=== PATIENT | female | born 1955 | race Two or more races ===

== ENCOUNTER 2021-04-11 13:48 | Inpatient (IN) | payer MEDICARE, OTHER ==
[~2021-04-11] VITALS: Ht 170.2 cm; Wt 81.6 kg
--- NOTE | 2021-04-11 15:00 | NUR ---
ROOM 220-B
--- NOTE | 2021-04-11 15:02 | NUR ---
URINE COLLECTED AND SENT TO THE LAB
[2021-04-11] MEDS ORDERED: NA P133E RC (15:15)
[2021-04-11] MEDS ORDERED: MAGN400O6 PO (15:15)
[2021-04-11] MEDS ORDERED: ACET325T53 PO (15:15)
[2021-04-11 16:07] LABS: BILIRUBIN,URINE NEGATIVE (NEGATIVE); COLOR,URINE YELLOW (YELLOW); LEUKOCYTE ESTERASE ,URINE MODERATE (NEGATIVE); NITRITE, URINE NEGATIVE (NEGATIVE); PROTEIN,URINE NEGATIVE (NEGATIVE); UGLUCOSE NEGATIVE (NEGATIVE); UROBILINOGEN,URINE 0.2 EU/dL (0.2)
[2021-04-11 16:14] LABS: BACTERIA,URINE 2+ /HPF (None Seen); RBC,URINE 0-2 /HPF (0-2); WBC,URINE 21-50 /HPF (0-3)
[2021-04-11 17:06] LABS: BASOPHILS % (AUTO) 0.4 % (0.0-2.0); EOSINOPHILS % (AUTO) 2.2 % (0.0-6.0); HEMATOCRIT 39 % (33-45); HEMOGLOBIN 12.8 g/dL (11.5-14.8); LYMPHOCYTES # (AUTO) 2.2 K/uL (0.8-4.8); LYMPHOCYTES % (AUTO) 34.6 % (20.0-44.0); MEAN CORPUSCULAR HGB CONC 33 g/dl (31.0-36.0); MEAN CORPUSCULAR VOLUME 93 fL (82-100); MONOCYTES # (AUTO) 0.8 K/uL (0.1-1.30); MONOCYTES % (AUTO) 12.9 % (2.0-12.0); NEUTROPHILS # (AUTO) 3.2 K/uL (1.8-8.9); NEUTROPHILS % (AUTO) 49.9 % (43.0-81.0); PLATELET COUNT (AUTO) 224 K/uL (150-450); RED BLOOD CELL COUNT(AUTO) 4.16 MIL/uL (4.0-5.2); WHITE BLOOD COUNT (AUTO) 6.4 K/uL (4.3-11.0)
[2021-04-11 17:14] LABS: CALCIUM, SERUM 9.3 mg/dL (8.5-10.1); CARBON DIOXIDE 27 mmol/L (21-32); CHLORIDE 106 mmol/L (98-107); CREATININE 0.8 mg/dL (0.6-1.3); GLUCOSE 99 mg/dL (74-106); POTASSIUM 4.1 mmol/L (3.5-5.1); SODIUM SERUM 141 mmol/L (136-145); UREA NITROGEN, BLOOD 16 mg/dL (7-18)
[2021-04-11 17:20] LABS: ALANINE AMINOTRANSFERASE 24 U/L (12-78); ALBUMIN 3.8 g/dL (3.4-5.0); ALKALINE PHOSPHATASE 120 U/L (46-116); ASPARTATE AMINOTRANSFERASE 22 U/L (15-37); BILIRUBIN,DIRECT 0.1 mg/dL (0.0-0.2); BILIRUBIN,TOTAL 0.4 mg/dL (0.2-1.0); TOTAL PROTEIN, SERUM 7.2 g/dL (6.4-8.2)
[2021-04-11 17:26] LABS: ACETAMINOPHEN 0 ug/ml (10-30); ALCOHOL, BLOOD < 3 mg/dL (0-0)
--- NOTE | 2021-04-11 17:49 | NUR ---
ART (PSYCH CLINICIAN) AT THE BEDSIDE
[2021-04-11 19:57] VITALS: BP 132/74
[2021-04-11] MEDS ORDERED: ACETAMINOPHEN 325 MG TABLET PO PRN (20:30)
[2021-04-11] MEDS ORDERED: MAGNESIUM HYDROXIDE 30 ML UDC PO PRN (20:30)
[2021-04-11] MEDS ORDERED: MAG HYDROX/AL HYDROX/SIMETH 30 ML UDC PO PRN (20:30)
[2021-04-11 20:44] VITALS: BP 143/80
[2021-04-11] MEDS ORDERED: BLOOD SUGAR DIAGNOSTIC 1 EACH STRIP IN ONE (21:30)
--- NOTE | 2021-04-11 23:00 | NUR ---
ADMISSION NOTES: ADMITTED THIS 65Y/O FEMALE PATIENT ADMIT FROM [facility] ER / INTAILLY FROM [facility] , ADMITTED TO GPS ON 5150 HOLD, PER HOLD GRAVELY DISABLED AND DUE TO INCREASED AGITATION AND VERBAL AND PHYSICAL AGGRESSION TOWARDS OTHER INCREASED CONFUSION , UPON FACE TO FACE ASSESSMENT PATIENT IS A&O X 1 ANXIOUS ,EASILY AGITATED , PARNOID DISHELVED , DISORGNIZED, UNCOOPERTIVE, RESTLESS, HYPERVERBAL, LOUD WORLD SALAD ,POOR HYGINE ,DELUSIONAL,CONFUSED, PT. NEEDS FREQUENLTLY REDIRECTIONS, REFUSED TO TAKE SHOWER AT THIS TIME, PT. IS POOR HISTORIAN, POOR INSIGHT ,POOR JUDGEMENT, PT. DENIES SI HI AT THIS TIME , BOTH MD AWARE AND NOTIFIED OF THE ADMISSION, BELONGINGS CONTRABAND WERE DONE , PT. REFUSED TO SIGNS OF ADMISSION PAPER DUE TO MENTAL CONDITION, REFUSED INITIALLY ACCU CHECK ENCOURAGED X3 STRONGLY REFUSED , PER PT. STATES I'M NOT DIABETIC ,PT. REFUSED SKIN ASSESSMENT AND PICTURES TAKEN, PT. RIGHTS DISCUSS BY PRIMARY NURSE , PROVIDE THE PT. WITH HANDBOOK, AND MEDICATIONS GUIDE, ENVIRONMENTAL SAFETY CHECK DONE, ENCOURAGED PT. VERBALIZED ANY FEELING CONCERN TO STAFF, ORIENT TO UNIT POLICY, NO ACUTE DISTRESS NOTED,VITAL SIGNS WNL ,DENIES ANY PAIN AT THIS TIME,WILL CONTINUE TO MONITOR FOR Q15 SAFETY AND BEHAVIOR.
--- NOTE | 2021-04-11 23:15 | NUR ---
RN NOTES: PT. REFUSED SKIN ASSESSMENT AND PICTURES TAKEN , ENCOURAGED X 3 PT. STRONGLY REFUSED AND PT. UNCOOPERTIVE ,AGGRESSIVE , PER PT. MY SKIN IS FINE ,
[2021-04-12 08:00] VITALS: BP 119/80
--- NOTE | 2021-04-12 09:13 | NUR ---
FÁTIMA Initial Discharge Plan: Patient is from [facility]. FÁTIMA asked Rajwinder from [place] and she stated she will let this SW know if pt is welcomed back. FÁTIMA will coordinate with the MD and treatment team.
--- NOTE | 2021-04-12 09:20 | NUR ---
Treatment Plan: Pt suspicious of this SW and refused to sign treatment plan.
--- NOTE | 2021-04-12 09:57 | NUR ---
SNF Contact: [facility] will accept pt back upon discharge.
--- NOTE | 2021-04-12 09:57 | NUR ---
Conservator: SW contacted pt's conservator Leonides Chou ([phone]) and left a detailed voicemail of pt's admission. SW requested conservator documents and detain and treat. However, FÁTIMA contacted ([phone]) and spoke with officer of the mathew Saldaña who will fax detain and treat and conservator documents.
[2021-04-12] MEDS ORDERED: ACETAMINOPHEN 325 MG TABLET PO PRN (11:30)
[2021-04-12] MEDS ORDERED: NA PHOS,M-B/NA PHOS,DI-BA 1 EA ENEMA RC PRN (11:30)
[2021-04-12] MEDS ORDERED: MAGNESIUM HYDROXIDE 30 ML UDC PO PRN (11:30)
[2021-04-12] MEDS: CEPHALEXIN MONOHYDRATE 500 MG CAPSULE PO SCH ×2 (11:42→20:35)
--- NOTE | 2021-04-12 12:44 | NUR ---
Conservator: FÁTIMA contacted ([phone]) and spoke with officer of the day Piper from [facility] [employer] who faxed the conservator paper works. FÁTIMA placed in pt's chart. FÁTIMA faxed for Piper to sign Detain and treat at ([phone]).
--- NOTE | 2021-04-12 13:03 | NUR ---
Detain and Treat/Conservator: SW faxed for Piepr to sign Detain and treat at ([phone]) and she faxed it back to this SW. SW placed it in pt's chart and notified nursing.
[2021-04-12 15:47] VITALS: BP 133/95
[2021-04-12] MEDS ORDERED: HALOPERIDOL LACTATE INJ 5 MG/ML VIAL IM PRN (18:00)
--- NOTE | 2021-04-12 19:15 | NUR ---
STOCK ANALYST NOTES: RECEIVED PT IN ROOM SITTING IN BED. A/O X1. NO ACUTE DISTRESS NOTED. ON ROOM AIR. BREATHING EVEN AND UNLABORED WITH EQUAL RISE AND FALL OF THE CHEST. NO COMPLAINTS OF PAIN AT THIS TIME. RESPONDS TO INTERNAL STIMULI. PT IS ANXIOUS AND EASILY AGITATED. REQUIRES REDIRECTION. PT DENIES SUICIDE IDEATIONS AND HOMICIDAL IDEATIONS AT THIS TIME. PT HAS NO NEEDS A THIS TIME. SAFETY MEASURES IN PLACE. WILL CONTINUE TO MONITOR Q15 MINS WITH THE HELP OF STAFF TO MAINTAIN SAFETY.
[2021-04-12] MEDS: HALOPERIDOL 5 MG TABLET PO SCH (20:35)
[2021-04-12] MEDS: DIVALPROEX SODIUM 125 MG CAP.SPRINK PO SCH (20:36)
[2021-04-12 20:56] VITALS: BP 127/52
[2021-04-13 08:00] VITALS: BP 129/75
[2021-04-13] MEDS: HALOPERIDOL 5 MG TABLET PO SCH ×2 (08:26→20:57)
[2021-04-13] MEDS: DIVALPROEX SODIUM 125 MG CAP.SPRINK PO SCH ×2 (08:26→20:57)
[2021-04-13] MEDS: CEPHALEXIN MONOHYDRATE 500 MG CAPSULE PO SCH ×2 (08:29→21:07)
--- NOTE | 2021-04-13 14:58 | NUR ---
RN-NOTES PATIENT REFUSED LAB DRAW TODAY DESPITE EXPLANATIONS RISK AND BENEFITS. X3 ATTEMPT.
[2021-04-13 16:00] VITALS: BP 110/71
[2021-04-13 19:55] VITALS: BP 128/75
[2021-04-13 19:57] VITALS: BP 128/75
--- NOTE | 2021-04-13 22:21 | NUR ---
RN NOTE PATIENT SEEN BY DR. MILLAN ROOFER METAL PSYCHIATRIST, PATIENT HAS BEEN REFUSING AM LABS AND LAB ORDER WAS CANCELLED. MD MADE AWARE WITH NEW ORDER TO RE ORDER LABS FOR TOMORROW MORNING (04/14/21). ORDER NOTED AND CARRIED OUT.
--- NOTE | 2021-04-14 06:38 | NUR ---
RN NOTE PATIENT REFUSED BLOOD DRAW IN AM X 3, UNCOOPERATIVE, EASILY AGITATED AND ANXIOUS.
[2021-04-14 08:00] VITALS: BP 127/77
[2021-04-14] MEDS: CEPHALEXIN MONOHYDRATE 500 MG CAPSULE PO SCH ×2 (08:47→21:15)
[2021-04-14] MEDS: DIVALPROEX SODIUM 125 MG CAP.SPRINK PO SCH ×2 (08:47→21:11)
[2021-04-14] MEDS: HALOPERIDOL 5 MG TABLET PO SCH ×2 (08:47→21:11)
[2021-04-14 16:00] VITALS: BP 146/77
--- NOTE | 2021-04-14 20:00 | NUR ---
GPS-RN NOTES: PATIENT REFUSED WEEKLY SKIN ASSESSMENT.
[2021-04-14 20:02] VITALS: BP 127/52
[2021-04-14] MEDS: TEMAZEPAM 7.5 MG CAPSULE PO PRN (22:58)
--- NOTE | 2021-04-14 22:58 | NUR ---
GPS-RN NOTES: INSOMNIA PATIENT IS UNABLE TO SLEEP. PRN RESTORIL 7.5MG PO GIVEN. WILL CONTINUE TO MONITOR.
[2021-04-15] MEDS: LORAZEPAM 0.5 MG TABLET PO PRN (00:57)
--- NOTE | 2021-04-15 00:57 | NUR ---
GPS-RN NOTES: ANXIETY PATIENT IS ANXIOUS AND RESTLESS. PRN ATIVAN 0.5MG PO GIVEN. WILL CONTINUE TO MONITOR PATIENT'S SAFETY.
[2021-04-15 06:52] LABS: BASOPHILS % (AUTO) 0.4 % (0.0-2.0); CALCIUM, SERUM 9.6 mg/dL (8.5-10.1); EOSINOPHILS % (AUTO) 3.6 % (0.0-6.0); HEMATOCRIT 43 % (33-45); HEMOGLOBIN 14.1 g/dL (11.5-14.8); LYMPHOCYTES # (AUTO) 2.1 K/uL (0.8-4.8); LYMPHOCYTES % (AUTO) 48.3 % (20.0-44.0); MEAN CORPUSCULAR HGB CONC 33 g/dl (31.0-36.0); MEAN CORPUSCULAR VOLUME 94 fL (82-100); MONOCYTES # (AUTO) 0.5 K/uL (0.1-1.30); NEUTROPHILS # (AUTO) 1.6 K/uL (1.8-8.9); NEUTROPHILS % (AUTO) 35.7 % (43.0-81.0); PLATELET COUNT (AUTO) 237 K/uL (150-450); POTASSIUM 4.1 mmol/L (3.5-5.1); RED BLOOD CELL COUNT(AUTO) 4.55 MIL/uL (4.0-5.2); WHITE BLOOD COUNT (AUTO) 4.4 K/uL (4.3-11.0)
[2021-04-15 07:25] LABS: CREATININE 0.7 mg/dL (0.6-1.3)
[2021-04-15 08:00] VITALS: BP 129/91
[2021-04-15] MEDS: DIVALPROEX SODIUM 125 MG CAP.SPRINK PO SCH ×2 (08:35→21:24)
[2021-04-15] MEDS: HALOPERIDOL 5 MG TABLET PO SCH ×2 (08:36→21:24)
[2021-04-15] MEDS: CEPHALEXIN MONOHYDRATE 500 MG CAPSULE PO SCH (08:36)
--- NOTE | 2021-04-15 08:36 | NUR ---
RN NOTE- KEFLEX 500 MG ADMINISTERED. NOT SCANNABLE
--- NOTE | 2021-04-15 09:00 | NUR ---
RN NOTE- RECEIVED PATIENT SITTING IN THE CHAIR NEXT TO HER BED GUARDED,TALKING AND MUMBLING TO SELF. AMBULATORY STEADY GAIT.COMPLIANT WITH MEDICATIONS. ALL NEEDS ATTENDED AND ANTICIPATED. WILL CONT. MONITORING FOR SAFETY AND BEHAVIOR.
--- NOTE | 2021-04-15 14:32 | NUR ---
Individual Therapy: SW met with patient to conduct therapy. However, pt appeared guarded and suspicious. Pt did not want to conduct therapy at this time.
[2021-04-15 16:00] VITALS: BP 144/88
[2021-04-15 20:10] VITALS: BP 112/74
[2021-04-15] MEDS: TEMAZEPAM 7.5 MG CAPSULE PO PRN (22:11)
--- NOTE | 2021-04-15 22:11 | NUR ---
GPS-RN NOTES: INSOMNIA PATIENT IS UNABLE TO SLEEP. PRN RESTORIL 7.5MG PO GIVEN. WILL CONTINUE TO MONITOR.
[2021-04-16 08:00] VITALS: BP 131/71
[2021-04-16] MEDS: HALOPERIDOL 5 MG TABLET PO SCH ×2 (09:47→21:25)
[2021-04-16] MEDS: DIVALPROEX SODIUM 125 MG CAP.SPRINK PO SCH ×2 (09:47→21:25)
[2021-04-16] MEDS ORDERED: HALOPERIDOL DECANOATE IM 100 MG/ML AMPUL IM ONE (10:00)
[2021-04-16 16:00] VITALS: BP 127/74
[2021-04-16] MEDS: TEMAZEPAM 7.5 MG CAPSULE PO PRN (23:16)
--- NOTE | 2021-04-16 23:16 | NUR ---
GPS-RN NOTES: INSOMNIA PATIENT IS UNABLE TO SLEEP. PRN RESTORIL 7.5MG PO GIVEN. WILL CONTINUE TO MONITOR.
[2021-04-17 08:00] VITALS: BP 105/79
[2021-04-17] MEDS: HALOPERIDOL 5 MG TABLET PO SCH ×2 (08:48→20:52)
[2021-04-17] MEDS: DIVALPROEX SODIUM 125 MG CAP.SPRINK PO SCH ×2 (08:48→20:52)
[2021-04-17 16:00] VITALS: BP 110/54
[2021-04-17 20:00] VITALS: BP 130/97
[2021-04-18 08:00] VITALS: BP 149/76
[2021-04-18] MEDS: DIVALPROEX SODIUM 125 MG CAP.SPRINK PO SCH ×3 (08:22→16:23)
[2021-04-18] MEDS: HALOPERIDOL 5 MG TABLET PO SCH ×2 (08:22→21:49)
[2021-04-18 16:00] VITALS: BP 132/76
--- NOTE | 2021-04-18 19:30 | NUR ---
GPS RN NOTE, RECEIVED PATIENT AWAKE AND IN BED, NO S/S OR COMPLAINTS OF PAIN AT THIS TIME. PATIENT IS DISPLAYING NO S/S OF APPARENT DISTRESS AT THIS TIME. PATIENT BREATHING IS UNLABORED WITH EQUAL RISE AND FALL OF THE CHEST. PATIENT IS ALERT AND ORIENTED X 1-2 ON ROOM AIR WITH A SPO2 96%. PATIENT IS COMPLIANT WITH MEDICATIONS, RESPONDING, ACTING BIZARRE, ANXIOUS AT TIMES, NEEDY, COOPERATIVE AND NEEDS REDIRECTION. PATIENT DENIES SUICIDAL AND HOMICIDAL IDEATIONS AT THIS TIME. PATIENT ASSISTED WITH TURNING AND REPOSITIONING Q2HR AND PRN FOR COMFORT AND CIRCULATION. PATIENT HAS NO NEEDS AT THIS TIME. PATIENT EDUCATED ON THE USE OF THE CALL GEIGER. PATIENT BED SIDE RAILS UP X 2 FOR SAFETY. PATIENT BED IS LOCKED, LOW, WITH BED ALARM ON. WILL CONTINUE TO MONITOR THIS PATIENT Q15 MINUTES WITH THE HELP OF STAFF TO MAINTAIN SAFETY.
[2021-04-19 08:00] VITALS: BP 127/63
[2021-04-19] MEDS: HALOPERIDOL 5 MG TABLET PO SCH ×2 (08:12→21:25)
[2021-04-19] MEDS: DIVALPROEX SODIUM 125 MG CAP.SPRINK PO SCH ×3 (08:12→16:21)
[2021-04-19 16:00] VITALS: BP 125/68
--- NOTE | 2021-04-19 19:30 | NUR ---
GPS RN NOTE, RECEIVED PATIENT AWAKE AND IN BED, NO S/S OR COMPLAINTS OF PAIN AT THIS TIME. PATIENT IS DISPLAYING NO S/S OF APPARENT DISTRESS AT THIS TIME. PATIENT BREATHING IS UNLABORED WITH EQUAL RISE AND FALL OF THE CHEST. PATIENT IS ALERT AND ORIENTED X 1-2 ON ROOM AIR WITH A SPO2 99%. PATIENT IS COMPLIANT WITH MEDICATIONS, RESPONDING, ACTING BIZARRE, ANXIOUS AT TIMES, NEEDY, HOARDING TRASH, COOPERATIVE, AND NEEDS REDIRECTION. PATIENT DENIES SUICIDAL AND HOMICIDAL IDEATIONS AT THIS TIME. PATIENT ASSISTED WITH TURNING AND REPOSITIONING Q2HR AND PRN FOR COMFORT AND CIRCULATION. PATIENT HAS NO NEEDS AT THIS TIME. PATIENT EDUCATED ON THE USE OF THE CALL GEIGER. PATIENT BED SIDE RAILS UP X 2 FOR SAFETY. PATIENT BED IS LOCKED, LOW, WITH BED ALARM ON. WILL CONTINUE TO MONITOR THIS PATIENT Q15 MINUTES WITH THE HELP OF STAFF TO MAINTAIN SAFETY.
[2021-04-19 19:51] VITALS: BP 110/69
[2021-04-20 08:00] VITALS: BP 115/70
[2021-04-20] MEDS: DIVALPROEX SODIUM 125 MG CAP.SPRINK PO SCH ×3 (08:19→16:00)
[2021-04-20] MEDS: HALOPERIDOL 5 MG TABLET PO SCH ×2 (08:19→21:54)
[2021-04-20 16:00] VITALS: BP 112/68
[2021-04-20 20:13] VITALS: BP 114/52
[2021-04-21 08:00] VITALS: BP 128/83
[2021-04-21] MEDS: DIVALPROEX SODIUM 125 MG CAP.SPRINK PO SCH ×3 (08:36→17:10)
[2021-04-21] MEDS: HALOPERIDOL 5 MG TABLET PO SCH ×2 (08:36→21:11)
[2021-04-21 16:00] VITALS: BP 139/81
--- NOTE | 2021-04-21 21:00 | NUR ---
GPS-RN NOTES: PATIENT REFUSED WEEKLY SKIN ASSESSMENT.
[2021-04-21 21:09] VITALS: BP 104/52
[2021-04-21] MEDS: LORAZEPAM 0.5 MG TABLET PO PRN (21:52)
--- NOTE | 2021-04-21 21:52 | NUR ---
GPS-RN NOTES: ANXIETY PATIENT IS ANXIOUS AND RESTLESS. PRN ATIVAN 0.5MG PO GIVEN. WILL CONTINUE TO MONITOR PATIENT'S SAFETY.
[2021-04-21] MEDS: TEMAZEPAM 7.5 MG CAPSULE PO PRN (23:50)
--- NOTE | 2021-04-21 23:50 | NUR ---
GPS-RN NOTES: INSOMNIA PATIENT IS UNABLE TO SLEEP. PRN RESTORIL 7.5MG PO GIVEN. WILL CONTINUE TO MONITOR.
[2021-04-22 08:00] VITALS: BP 133/63
[2021-04-22] MEDS: HALOPERIDOL 5 MG TABLET PO SCH ×2 (09:37→20:46)
[2021-04-22] MEDS: DIVALPROEX SODIUM 125 MG CAP.SPRINK PO SCH ×3 (09:38→17:00)
[2021-04-22] MEDS ORDERED: HALOPERIDOL DECANOATE IM 100 MG/ML AMPUL IM ONE (11:00)
[2021-04-22 16:00] VITALS: BP 155/80
[2021-04-22 19:37] VITALS: BP 128/64
[2021-04-22] MEDS: TEMAZEPAM 7.5 MG CAPSULE PO PRN (20:46)
[2021-04-23 08:00] VITALS: BP 117/59
[2021-04-23] MEDS: HALOPERIDOL 5 MG TABLET PO SCH ×2 (08:45→21:03)
[2021-04-23] MEDS: DIVALPROEX SODIUM 125 MG CAP.SPRINK PO SCH ×3 (08:46→17:49)
[2021-04-23 15:39] VITALS: BP 129/95
[2021-04-23 20:00] VITALS: BP 126/63
[2021-04-23] MEDS: TEMAZEPAM 7.5 MG CAPSULE PO PRN (22:58)
--- NOTE | 2021-04-23 22:58 | NUR ---
GPS-RN NOTES: INSOMNIA PATIENT IS UNABLE TO SLEEP. PRN RESTORIL 7.5MG PO GIVEN ORDERED. WILL CONTINUE TO MONITOR.
[2021-04-24 08:00] VITALS: BP 150/93
[2021-04-24] MEDS: DIVALPROEX SODIUM 125 MG CAP.SPRINK PO SCH ×3 (08:21→16:30)
[2021-04-24] MEDS: HALOPERIDOL 5 MG TABLET PO SCH (08:21)
[2021-04-24 16:00] VITALS: BP 136/50
[2021-04-24] MEDS ORDERED: HALOPERIDOL 5 MG TABLET PO SCH (17:00)
[2021-04-24 20:00] VITALS: BP 156/76
[2021-04-25] MEDS ORDERED: HALOPERIDOL 5 MG TABLET PO SCH (07:30)
[2021-04-25 08:00] VITALS: BP 127/74
[2021-04-25] MEDS: QUETIAPINE FUMARATE 25 MG TABLET PO SCH ×2 (09:36→16:31)
[2021-04-25] MEDS: DIVALPROEX SODIUM 125 MG CAP.SPRINK PO SCH ×3 (09:36→16:31)
[2021-04-25 16:00] VITALS: BP 136/76
[2021-04-26 08:00] VITALS: BP 146/62
[2021-04-26] MEDS: DIVALPROEX SODIUM 125 MG CAP.SPRINK PO SCH ×3 (08:21→16:42)
[2021-04-26] MEDS: QUETIAPINE FUMARATE 25 MG TABLET PO SCH (08:21)
[2021-04-26 15:58] VITALS: BP 134/78
[2021-04-26 20:18] VITALS: BP 150/65
[2021-04-26] MEDS: QUETIAPINE FUMARATE 100 MG TABLET PO SCH (21:30)
[2021-04-27 08:00] VITALS: BP 126/76
[2021-04-27] MEDS: QUETIAPINE FUMARATE 25 MG TABLET PO SCH (09:36)
[2021-04-27] MEDS: DIVALPROEX SODIUM 125 MG CAP.SPRINK PO SCH ×3 (09:36→17:14)
[2021-04-27 16:00] VITALS: BP 126/56
--- NOTE | 2021-04-27 19:30 | NUR ---
GPS RN NOTE, RECEIVED PATIENT AWAKE AND IN BED, NO S/S OR COMPLAINTS OF PAIN AT THIS TIME. PATIENT IS DISPLAYING NO S/S OF APPARENT DISTRESS AT THIS TIME. PATIENT BREATHING IS UNLABORED WITH EQUAL RISE AND FALL OF THE CHEST. PATIENT IS ALERT AND ORIENTED X 1-2 ON ROOM AIR WITH A SPO2 98%. PATIENT IS COMPLIANT WITH MEDICATIONS, RESPONDING, ACTING BIZARRE, ANXIOUS AT TIMES, NEEDY, COOPERATIVE AND NEEDS REDIRECTION. PATIENT DENIES SUICIDAL AND HOMICIDAL IDEATIONS AT THIS TIME. PATIENT ASSISTED WITH TURNING AND REPOSITIONING Q2HR AND PRN FOR COMFORT AND CIRCULATION. PATIENT HAS NO NEEDS AT THIS TIME. PATIENT EDUCATED ON THE USE OF THE CALL GEIGER. PATIENT BED SIDE RAILS UP X 2 FOR SAFETY. PATIENT BED IS LOCKED, LOW, WITH BED ALARM ON. WILL CONTINUE TO MONITOR THIS PATIENT Q15 MINUTES WITH THE HELP OF STAFF TO MAINTAIN SAFETY.
[2021-04-27 20:12] VITALS: BP 133/47
[2021-04-27 20:14] VITALS: BP 133/47
[2021-04-27] MEDS: QUETIAPINE FUMARATE 100 MG TABLET PO SCH (21:38)
[2021-04-28 08:00] VITALS: BP 137/85
[2021-04-28] MEDS: LORAZEPAM 0.5 MG TABLET PO PRN (09:17)
[2021-04-28] MEDS: QUETIAPINE FUMARATE 25 MG TABLET PO SCH (09:17)
[2021-04-28] MEDS: DIVALPROEX SODIUM 125 MG CAP.SPRINK PO SCH ×3 (09:18→16:16)
--- NOTE | 2021-04-28 09:21 | NUR ---
RN-CO: ATIVAN 0.5 MG PO GIVEN FOR RESTLESSNESS AND DISRUPTION TO THE UNIT.
[2021-04-28 16:11] VITALS: BP 140/82
--- NOTE | 2021-04-28 20:00 | NUR ---
GPS-RN NOTE: PATIENT REFUSED WEEKLY SKIN ASSESSMENT. EXPLAINED RISKS AND BENEFITS. PATIENT CONTINUED TO REFUSE. WILL ENDORSE TO DAY SHIFT NURSE FOR CONTINUITY OF CARE.
[2021-04-28 20:01] VITALS: BP 115/70
[2021-04-28] MEDS: QUETIAPINE FUMARATE 100 MG TABLET PO SCH (21:01)
[2021-04-29 08:00] VITALS: BP 151/88
[2021-04-29] MEDS: QUETIAPINE FUMARATE 25 MG TABLET PO SCH (09:04)
[2021-04-29] MEDS: DIVALPROEX SODIUM 125 MG CAP.SPRINK PO SCH ×3 (09:04→17:31)
--- NOTE | 2021-04-29 09:47 | NUR ---
Conservator: SW contacted pt's conservator Leonides Chou ([phone]) and left a detailed voicemail of dc back to [facility] 04/30.
[2021-04-29 16:23] VITALS: BP 126/71
[2021-04-29 20:11] VITALS: BP 140/76
[2021-04-29] MEDS: QUETIAPINE FUMARATE 100 MG TABLET PO SCH (21:18)
[2021-04-30 08:00] VITALS: BP 119/57
--- NOTE | 2021-04-30 08:11 | NUR ---
SW Discharge Note: Patient will be discharged to a locked long term facility to [facility] [address] [place] [address]; ([phone]). Please arrange ambulance transportation. Electrical Discharge Machine Operator spoke with Yessy, Ict Analyst at [facility]; ([phone]), who stated patient will be accepted at facility today. Patient is alert and oriented x1, and is not able to plan for self-care at this time, but is willing to accept care provided for her at the facility. Patient denies any suicidal or homicidal ideations. Patient is aware and agreeable with discharge plans. Patients conservator José Antonio Coyle ([phone]) is aware and agreeable. Patient will continue to follow-up with her (Psychiatrist) Dr. Slater located at [address] [place] [id number]; ([phone]) and (Senior Cisco Network Engineer) Dr. Marquis [address], [place] [address]; ([phone]). Patient presents with euthymic mood and congruent affect.
[2021-04-30] MEDS: DIVALPROEX SODIUM 125 MG CAP.SPRINK PO SCH ×2 (09:54→13:22)
[2021-04-30] MEDS: QUETIAPINE FUMARATE 25 MG TABLET PO SCH (09:54)
[2021-04-30 13:30] VITALS: BP 155/66
--- NOTE | 2021-04-30 13:55 | NUR ---
PATIENT DISCHARGED TO [facility] IN STABLE CONDITION .COOPERATIVE AND COMPLIANT WITH MEDICATIONS .DISCUSSED AFTER CARE WITH PATIENT .BEHAVIOR IMPROVED ,NO AGITATION, PATIENT DENIES SUICIDAL/HOMICIDAL IDEATION ,DENIES AUDITORY/VISUAL HALLUCINATION ,TREATMENT PLAN GOALS WERE MET ,AFTERCARE PLAN COPY GIVEN TO PATIENT ,ALL BELONGINGS RETURNED TO PATIENT REPORT GIVEN TO VICKY DELGADILLO IN [facility] AND F/U WITH HALDOL DEC 75 MG Q MONTHLY IS DUE 05/16.SLADE BARTLETT AND MANJULA BARTLETT DISCHARGED PATIENT WITH DISCHARGE ORDERS ,HOLD D/C BY MANJULA BARTLETT .PATIENT DISCHARGED AT 13:55 WITH AMBULANCE.
== END 2021-04-30 13:55 | DRG 885 ==
LOC: ER 13:56 → GPS 19:36
PROVIDERS: ADMIT Nurse Practitioner Psychiatric/Mental Health; ATTEND Nurse Practitioner Acute Care
DX: F25.9 Schizoaffective disorder, unspecified (principal); F41.9 Anxiety disorder, unspecified; F03.90 Unspecified dementia, unspecified severity, without behavioral disturbance, psychotic disturbance, mood disturbance, and anxiety; Z20.822 Contact with and (suspected) exposure to COVID-19; E66.9 Obesity, unspecified; Z68.28 Body mass index [BMI] 28.0-28.9, adult; F29 Unspecified psychosis not due to a substance or known physiological condition; Z73.6 Limitation of activities due to disability; M62.81 Muscle weakness (generalized); R60.9 Edema, unspecified
CPT/HCPCS: 36415; 80048-TC; 80061-TC; 80076-TC; 80164-TC; 81001; 82140-TC; 85025-TC; 87086-TC; C9803; G0480; J1631

== ENCOUNTER 2021-05-08 14:10 | Emergency (ER) | payer MEDICARE, OTHER ==
[~2021-05-08] VITALS: Ht 170.2 cm; Wt 82.6 kg
[~2021-05-08 14:10] MED LIST: ACET325T53 PO; MAGN400O6 PO; NA P133E RC
--- NOTE | 2021-05-08 14:10 | NUR ---
ROB ADAME FROM SNF FOR MEDICAL CLEARANCE FOR GEROPSYCH ADMIT. PT IS A&oX4 AND PACING WITHIN HER ROOM.VITALS ARE WITHIN NORMAL LIMITS. PT HAS AGGRESSION TOWARD STAFF AND REFUSED BOTH LABS AND URINE TO BE COLLECTED.
[2021-05-08] MEDS ORDERED: QUET25TA PO ×2 (14:49)
[2021-05-08] MEDS ORDERED: DIVA125C2 PO (14:49)
[2021-05-08] MEDS ORDERED: LORA-259 PO (14:49)
[2021-05-08] MEDS ORDERED: ACET-2605 PO (14:49)
[2021-05-08] MEDS ORDERED: TEMA7.5C PO (14:49)
[2021-05-08] MEDS ORDERED: HALO100A2 IM (14:49)
[2021-05-08] MEDS ORDERED: MAG30ORA PO (14:49)
--- NOTE | 2021-05-08 15:49 | NUR ---
LABS COLLECTED AND SENT
[2021-05-08 15:58] LABS: BASOPHILS % (AUTO) 0.4 % (0.0-2.0); EOSINOPHILS % (AUTO) 0.8 % (0.0-6.0); HEMATOCRIT 39 % (33-45); HEMOGLOBIN 12.7 g/dL (11.5-14.8); LYMPHOCYTES # (AUTO) 2.1 K/uL (0.8-4.8); LYMPHOCYTES % (AUTO) 32.1 % (20.0-44.0); MEAN CORPUSCULAR HGB CONC 33 g/dl (31.0-36.0); MEAN CORPUSCULAR VOLUME 93 fL (82-100); MONOCYTES # (AUTO) 0.8 K/uL (0.1-1.30); MONOCYTES % (AUTO) 11.8 % (2.0-12.0); NEUTROPHILS # (AUTO) 3.6 K/uL (1.8-8.9); NEUTROPHILS % (AUTO) 54.9 % (43.0-81.0); PLATELET COUNT (AUTO) 221 K/uL (150-450); RED BLOOD CELL COUNT(AUTO) 4.16 MIL/uL (4.0-5.2); WHITE BLOOD COUNT (AUTO) 6.6 K/uL (4.3-11.0)
[2021-05-08 16:21] LABS: ALANINE AMINOTRANSFERASE 24 U/L (12-78); ALBUMIN 3.7 g/dL (3.4-5.0); ALKALINE PHOSPHATASE 109 U/L (46-116); ASPARTATE AMINOTRANSFERASE 22 U/L (15-37); BILIRUBIN,DIRECT 0.1 mg/dL (0.0-0.2); BILIRUBIN,TOTAL 0.4 mg/dL (0.2-1.0); CALCIUM, SERUM 9.1 mg/dL (8.5-10.1); CARBON DIOXIDE 26 mmol/L (21-32); CHLORIDE 108 mmol/L (98-107); CREATININE 0.9 mg/dL (0.6-1.3); GLUCOSE 134 mg/dL (74-106); POTASSIUM 3.6 mmol/L (3.5-5.1); SODIUM SERUM 142 mmol/L (136-145); TOTAL PROTEIN, SERUM 7.3 g/dL (6.4-8.2); UREA NITROGEN, BLOOD 18 mg/dL (7-18)
[2021-05-08 16:23] LABS: ACETAMINOPHEN 0 ug/ml (10-30); ALCOHOL, BLOOD < 3 mg/dL (0-0)
[2021-05-08] MEDS ORDERED: OLANZAPINE 5 MG TABLET ONE (18:50)
--- NOTE | 2021-05-08 18:52 | NUR ---
[facility] CALLED ETA 90 MINS PER MARCO.
[2021-05-08] MEDS ORDERED: OLANZAPINE 5 MG TABLET PO ONE (19:00)
--- NOTE | 2021-05-08 19:05 | NUR ---
REC'D REPORT FROM LEONA LUND FOR [facility]
--- NOTE | 2021-05-08 19:26 | NUR ---
PT WALKED TO RESTROOM, NEEDS MET
--- NOTE | 2021-05-08 20:10 | NUR ---
GAVE REPORT TO EMS
--- NOTE | 2021-05-08 20:11 | NUR ---
ATTEMPTED TO GIVE REPORT TO [facility]. NO ANSWER
--- NOTE | 2021-05-08 20:15 | NUR ---
ATTEMPTED TO GIVE REPORT, NO ANSWER
--- NOTE | 2021-05-08 20:18 | NUR ---
GAVE REPORT TO LEONA MEZA FOR [facility]
[2021-05-08 20:19] VITALS: BP 125/69
== END 2021-05-08 20:10 ==
LOC: ER 14:17
DX: R45.1 Restlessness and agitation (principal); R45.6 Violent behavior; F32.9 Major depressive disorder, single episode, unspecified; Z88.8 Allergy status to other drugs, medicaments and biological substances; Z79.899 Other long term (current) drug therapy
CPT/HCPCS: 36415; 80048-TC; 80076-TC; 85025-TC; G0480